=== PATIENT | male | born 1955 | race Caucasian/White ===

== ENCOUNTER 2017-07-19 10:06 | Emergency (ER) | payer OTHER ==
[2017-07-19 10:22] VITALS: BP 148/90
--- NOTE | 2017-07-19 10:29 | ERNOTE ---
[facility] Date of Service: 07/19/17 Presenting Symptoms: eye pain Time Seen by Provider: 07/19/17 10:27 Source: patient, RN notes reviewed Exam Limitations: no limitations - Immun/Allergies/Home Medications Immunizations: IMMUNIZATION HX Immunizations Up to Date Yes History of Influenza Vaccine No Hx Pneumococcal Vaccination No Allergies/Adverse Reactions: Allergies Allergy/AdvReac Type Severity Reaction Status Date / Time No Known Allergies Allergy Unverified 07/19/17 10:22 Home Medications: HOME MEDICATIONS Multivitamin [Multivitamins] 1 each PO DAILY 07/19/17 [Last Taken Unknown] - Pain Score Pain Score #1 Pain Score: 2 - History of Present Illness Narrative: 61 year old male presents to the ED for right eye irritation that began yesterday morning. He woke up to use the bathroom and noticed that his eye was irritated and mildly painful. He attempted to flush his eye with no improvement. The symptoms did get better throughout the day yesterday, but returned last evening. He wears glasses but does not wear contacts. He attempted to see his lens edger but he is out of town. He does have an appointment scheduled for Saturday. Date (Duration): 07/18/17 Time (Timing): 03:00 ENT Location: Present: eye (R) Prearrival Treatment: Present: flushing eys Prior Treament: Reports: similar symptoms before. Denies: recently seen Review of Systems - Review of Systems Constitutional: Absent: recent illness, fever, malaise EYE: Present: eye pain, tearing. Absent: eye discharge, vision changes ENT: Absent: nose congestion, nasal drainage, sore throat Respiratory: Absent: shortness of breath, cough Cardiology: Present: no symptoms reported Gastrointestinal/Abdominal: Absent: nausea, vomiting Genitourinary: Present: no symptoms reported Musculoskeletal: Absent: muscle pain, joint pain Skin: Absent: rash, lesions, lumps, change in color Neurological: Absent: headache, dizziness/light-headedness Endocrine: Present: no symptoms reported Hematologic/Lymphatic: Present: no symptoms reported Psych: Present: no symptoms reported - Patient's Past Medical History Patient History - Medical: No pertinent hx Patient History - Cardiac/Respiratory: No pertinent hx Patient History - Cancer: Skin Patient History - Surgical Procedures: Noncontributory Patient History - Other: None - Social History Living Situations: home Psych History: No pertinent hx Smoking Status: Never smoker Alcohol Use: none Drug Use: none - Immunizations Immunizations Up to Date: Yes Hx Pneumococcal Vaccination: No History of Influenza Vaccine: No Physical Exam - Physical Exam General Appearance: Present: wd/wn, alert, no apparent distress Head Exam: Present: normal inspection, no evidence of injury Eye Exam: Normal inspection: left, PERRL: bilateral, EOMI: bilateral, Sclera injection: right - mild, Other: bilateral - no drainage, eyelid inflammation or photophobia Ears, Nose, Throat: Present: normal ENT inspection, normal pharynx Neck: Present: normal inspection, nontender, supple. Absent: lymphadenopathy (R ), lymphadenopathy (L) Respiratory: Present: no respiratory distress, normal breath sounds, no accessory muscle use, lungs clear Cardiovascular/Chest: Present: regular rate, rhythm, no murmur Extremity Exam: Present: normal inspection, normal range of motion Neurological Exam: Present: alert, oriented, normal mood/affect, no motor/ sensory deficits Skin Exam: Present: normal color, warm/dry ED Progress - Vital Signs Patient's Vital Signs:: I have reviewed the patient's vital signs. Vital Signs: Vital Signs 07/19/17 10:15 Temperature 36.4 C L Pulse Rate 64 Respiratory 16 Rate Blood Pressure 148/90 O2 Sat by Pulse 98 Oximetry - Progress/Reassessment Chief Complaint: Eye Injury/Trauma Progress:: Improved Procedures Eye Location: right eye Eyes - Both: 1 - Abrasion 2 - abrasion Tetracaine Drops Administered: Yes Eye - Cornea: Right: examined w/fluorescein, fluorescein dye uptake Antibiotic Ointment/Drps Admin: right eye - Gentak Complications: Pt artie procedure well Departure Clinical Impression: Corneal abrasion, right Qualifiers: Encounter type: initial encounter Qualified Code(s): S05.01XA - Injury of conjunctiva and corneal abrasion without foreign body, right eye, initial encounter - Departure Disposition: Home Follow Up Needed Condition: Good Instructions: Corneal Abrasion, [id number] Additional Instructions: Use eye ointment 3 times a day Ibuprofen for inflammation - 600 mg (3 tablets) every 6 hours with food See your eye doctor on Saturday if no improvement, or return to ER if symptoms worsen over the weekend
[2017-07-19] MEDS ORDERED: GENTAMICIN SULFATE 3.5 APPL TUBE RIGHTEYE ONE (10:42)
[2017-07-19] MEDS ORDERED: GENTAMICIN SULFATE 50 DROP BTL ONE (10:44)
== END 2017-07-19 10:52 | disposition home or self-care (01) ==
LOC: ER 10:06
DX: S05.01XA Injury of conjunctiva and corneal abrasion without foreign body, right eye, initial encounter (principal); Z85.828 Personal history of other malignant neoplasm of skin